=== PATIENT | female | born 1960 | race Caucasian/White ===

== ENCOUNTER 2023-09-27 22:59 | Emergency (ER) | payer OTHER ==
[2023-09-27 23:06] VITALS: TEMP 97.7; BMI 22.8
[2023-09-27 23:50] VITALS: BP 132/77; PULSE 77; RESP 16
== END 2023-09-27 23:55 | disposition home or self-care (01) ==
LOC: FER 22:59
DX: I10 Essential (primary) hypertension (principal)
CPT/HCPCS: 99283-25